=== PATIENT | female | born 1985 | race Caucasian/White ===

== ENCOUNTER 2018-10-02 10:52 | Inpatient (IN) | payer OTHER, SELFPAY ==
[2018-10-02 11:35] VITALS: BMI 38.0
[2018-10-02] MEDS ORDERED: Methylergonovine 0.2 MG/ML VIAL IM PRN ×2 (11:46→16:58)
[2018-10-02] MEDS ORDERED: Ibuprofen 800 MG TAB PO PRN (11:46)
[2018-10-02] MEDS ORDERED: HYDROcodone/Acetaminophen 5/325 mg Tablet PO PRN ×4 (11:46→16:58)
[2018-10-02] MEDS ORDERED: Butorphanol Tartrate 1 MG/ML VIAL SLOW IVP PRN (11:46)
[2018-10-02] MEDS ORDERED: Ondansetron PF 4 MG/2 ML Vial IVP PRN ×2 (11:46→16:58)
[2018-10-02] MEDS ORDERED: Acetaminophen 500 MG TAB PO PRN (11:46)
[2018-10-02] MEDS ORDERED: Carboprost 250 MCG/ML AMP IM PRN (11:46)
[2018-10-02] MEDS ORDERED: NS / Oxytocin 40 units/1000ml 1,000 ML IV PRN (11:46)
[2018-10-02] MEDS ORDERED: Diphenoxylate HCl/Atropine Tablet PO PRN ×2 (11:46)
[2018-10-02] MEDS ORDERED: Lidocaine 1% (PF) 30 ML VIAL SC PRN (11:46)
[2018-10-02] MEDS ORDERED: Promethazine HCl 25 MG/ML VIAL IM PRN (11:46)
[2018-10-02] MEDS ORDERED: Misoprostol 200 MCG TAB PR PRN (11:46)
[2018-10-02] MEDS ORDERED: Penicillin G Potassium 5 MILL.UNITS VIAL ONE (11:49)
[2018-10-02] MEDS ORDERED: Penicillin G Potassium 5 MILL.UNITS in Sodium Chloride 0.9% 100 ML IVPB SCH (12:00)
[2018-10-02 12:14] LABS: Mean Corpuscular HGB CONC 33.3 g/dL (32.0-36.0); Mean Corpuscular Hemoglobin 31.3 pg (27.0-31.0); Mean Platelet Volume 7.9 fL (7.4-10.4); Platelet Count 174 thou/uL (130-400); RBC Distribution Width 12.8 % (11.5-14.5); Red Blood Cell (RBC) Count 3.83 mill/uL (4.20-5.40); White Blood Cell (WBC) Count 9.8 thou/uL (4.8-10.8)
[2018-10-02 12:52] LABS: HBSAg Index 0.32 S/CO (0-0.99); Hep B Surf Ag Non-Reactive S/CO (NonReactive); Syphilis Antibody Nonreactive (Nonreactive); Syphilis Antibody Index 0.07 S/CO (<1.00 Non-Reactive)
[2018-10-02] MEDS: NS / Oxytocin 40 units/1000ml 1,000 ML IV SCH ×2 (14:40→16:15)
--- NOTE | 2018-10-02 15:13 | PDOC.LDHP ---
Labor and Delivery H&P Chief complaint: contractions HPI: oscar had regular contrqactions starting this morning during breakfast. They were every 4-6 mins before arriving to the hospital. Denies LOF, VB. The baby is moving normally Current gestational age (weeks): 39 Dating criteria: last menstrual period Grav: 3 Para: 2 OB History Details: 10+ lbs Current complications: none Abnormal US findings: No Past Medical History: rhesus negative pap NML 2018 Current medications: pre-herrera vitamins Previous surgical history: other ([place]is[place] teeth extraction Knee arthroscopy Chlecystectomy) Allergies/Adverse Reactions: Allergies Allergy/AdvReac Type Severity Reaction Status Date / Time No Known Allergies Allergy Verified 06/03/15 07:44 Social history: none - Physical Exam Vital signs reviewed and normal: yes General: breathing through contractions Heart: RRR Lungs: nonlabored breathing Abdomen: gravid Extremeties: trace edema FHT: category 1 - Vaginal Exam cm dilated: 5 Effacement: 100% Station: -1 - OB Labs Blood type: O RH: negative Antibody Screen: negative RPR: negative HEPSAg: negative 1 hour GCT: negative Urine drug screen: negative Rubella: immune - Assessment L&D Assessment: term patient in labor - Plan Plan: admit to L&D, GBS antibiotic prophylaxis (Anticipate High risk for PPH due to multiparity and hx of macrosomia Rhogam after delivery)
--- NOTE | 2018-10-02 15:17 | PDOC.OPDEL ---
OB Operative/Delivery Note Delivery Dr/Surgeon: ROSALINA Haile Pre-Delivery Diagnosis: active labor Procedure/Post Delivery Dx: spontaneous vaginal delivery Weeks gestation: 39 Anesthesia: none - Findings A Sex: female Weight: 9 lb 4 oz - 1 min: 9 - 5 min: 9 - Additional Findings/Plan Placenta delivered: spontaneous Repaired Obstetrical Laceration: 2nd degree Estimated blood loss: 350mL EBL Post delivery plan: routine recovery
[2018-10-02] MEDS ORDERED: Penicillin G 2.5 MILL.units 2.5 MILL.UNITS in Premix Bag 1 BAG IVPB SCH (16:00)
[2018-10-02] MEDS ORDERED: Misoprostol 200 MCG TAB VAG PRN (16:58)
[2018-10-02] MEDS ORDERED: Milk Of Magnesia 30 ML UDCUP PO PRN (16:58)
[2018-10-02] MEDS ORDERED: Benzocaine-Menthol 82.5 ML CAN TOP PRN (16:58)
[2018-10-02] MEDS ORDERED: Bisacodyl 10 MG SUPP PR PRN (16:58)
[2018-10-02] MEDS: Ferrous Sulfate 325 MG TAB PO SCH (17:48)
[2018-10-02] MEDS ORDERED: Sodium Chloride 0.9% 0 ML ONE (21:41)
[2018-10-02] MEDS: Ibuprofen 800 MG TAB PO SCH (22:04)
[2018-10-02] MEDS: Docusate Calcium (SURFAK) 240 MG CAP PO SCH (22:04)
[2018-10-03] MEDS: Ibuprofen 800 MG TAB PO SCH ×3 (05:53→21:44)
--- NOTE | 2018-10-03 07:45 | PDOC.PP ---
Post Progress Note Post Day #: 1 Subjective: No concerns. Resting. Minimal lochia and pain. Breast feeding. PO intake tolerated: yes Flatus: yes Ambulation: yes Vital Signs (12 hours) Temp Pulse Resp BP Pulse Ox 10/03/18 07:32 98.1 F 70 20 98/61 98 10/03/18 05:30 98.2 F 73 18 99/64 10/03/18 00:10 98.1 F 79 18 90/52 L Weight Weight 250 lb - Physical Examination General: NAD Cardiovascular: RRR Respiratory: non-labored breathing Abdominal: no distention, appropriately TTP Fundus firm & at: below umbilicus Neurological: no gross focal deficits Psychiatric: A&Ox3, normal affect Result Diagrams: 10/02/18 12:00 Additional Labs: Post Labs Blood Type O NEGATIVE 10/02/18 12:00 Hep Bs Antigen Non-Reactive S/CO (NonReactive) 10/02/18 12:00 (1) (spontaneous vaginal delivery) Code(s): O80 - ENCOUNTER FOR FULL-TERM UNCOMPLICATED DELIVERY Status: Acute - Assessment/Plan PPD1 VSSAF Rh neg, s/p rhogam Continue PP care Plan for d/c tomorrow with infant due to inadequate GBS PPX for infant.
[2018-10-03] MEDS ORDERED: Adacel (T-DAP) 0.5 ML SYRINGE IM ONE (09:00)
[2018-10-03] MEDS: Ferrous Sulfate 325 MG TAB PO SCH ×2 (10:36→18:14)
[2018-10-03] MEDS: Docusate Calcium (SURFAK) 240 MG CAP PO SCH ×2 (10:38→21:43)
[2018-10-03] MEDS: Prenatal Vitamin 1 TAB PO SCH (10:38)
[2018-10-04 08:16] VITALS: BP 104/65; TEMP 98.6
[2018-10-04] MEDS: Prenatal Vitamin 1 TAB PO SCH (09:06)
[2018-10-04] MEDS: Docusate Calcium (SURFAK) 240 MG CAP PO SCH (09:06)
[2018-10-04] MEDS: Ibuprofen 800 MG TAB PO SCH ×2 (09:07→12:08)
[2018-10-04] MEDS: Ferrous Sulfate 325 MG TAB PO SCH (09:07)
== END 2018-10-04 12:20 | disposition home or self-care (01) | DRG 807 ==
LOC: L&D/OP 10:52 → L&D-LIB 15:08 → 3SW 17:36
PROVIDERS: ADMIT Obstetrics & Gynecology; ATTEND Obstetrics & Gynecology
PROC: 10E0XZZ Delivery of Products of Conception, External Approach (ICD-10-PCS; principal; 2018-10-04)
PROC: 0KQM0ZZ Repair Perineum Muscle, Open Approach (ICD-10-PCS; 2018-10-04)
DX: O26.893 Other specified pregnancy related conditions, third trimester (principal); Z37.0 Single live birth; O70.1 Second degree perineal laceration during delivery; Z3A.39 39 weeks gestation of pregnancy; Z90.49 Acquired absence of other specified parts of digestive tract; Z67.91 Unspecified blood type, Rh negative
CPT/HCPCS: 36415; 85027; 85461; 86780; 86850; 86900; 86901; 87340; 90384; 90715; 96372; 99285; J2001; J2540

== ENCOUNTER 2020-07-18 17:20 | Inpatient (IN) | payer OTHER ==
[2020-07-18] MEDS ORDERED: Ibuprofen 800 MG TAB PO PRN (17:41)
[2020-07-18] MEDS ORDERED: Lactated Ringer's 1,000 ML IV PRN (17:41)
[2020-07-18] MEDS ORDERED: hydrALAZINE 20 MG/ML VIAL SLOW IVP PRN (17:41)
[2020-07-18] MEDS ORDERED: Ondansetron PF 4 MG/2 ML Vial IVP PRN ×2 (17:41→22:35)
[2020-07-18] MEDS ORDERED: NS / Oxytocin 40 units/1000ml 1,000 ML IV PRN (17:41)
[2020-07-18] MEDS ORDERED: Promethazine HCl 25 MG/ML VIAL IM PRN ×2 (17:41→22:35)
[2020-07-18] MEDS ORDERED: HYDROcodone/Acetaminophen 5/325 mg Tablet PO PRN ×2 (17:41)
[2020-07-18] MEDS ORDERED: Lidocaine 1% (PF) 30 ML VIAL SC PRN (17:41)
[2020-07-18] MEDS ORDERED: Penicillin G Potassium 5 MILL.UNITS in Sodium Chloride 0.9% 100 ML IVPB SCH (17:45)
--- NOTE | 2020-07-18 17:55 | PDOC.LDHP ---
Labor and Delivery H&P Chief complaint: contractions, loss of fluid HPI: Patient c/o a big gush of fluid around 3;30. It soaked her pad and came out of the front of it. She showered and had some bloody mucus that came after, but has not had anymore fluid leaking. She started jaky about thirty minutes later. After arriving to the hospital they are about every 3 minutes per patient. Affirms movement. Current gestational age (weeks): 39 (4) Due date: 07/21/20 Dating criteria: last menstrual period Grav: 4 Para: 3 OB History Details: 2013 8.8F 2016 10.4 Male 2019 9.4 Female Current complications: none, other (advanced maternal age) Abnormal US findings: No Current medications: pre-herrera vitamins Previous surgical history: cholecystectomy, other ([place] teeth extraction knee arthroscopy) Allergies/Adverse Reactions: Allergies Allergy/AdvReac Type Severity Reaction Status Date / Time No Known Allergies Allergy Verified 06/03/15 07:44 Social history: none - Physical Exam Vital signs reviewed and normal: yes General: breathing through contractions Heart: other Lungs: nonlabored breathing Abdomen: gravid FHT: category 1 - Vaginal Exam cm dilated: 6 Effacement: 90% Station: -1 - OB Labs Blood type: O RH: negative Antibody Screen: negative HIV: negative RPR: negative HEPSAg: negative 1 hour GCT: negative GBS: positive Urine drug screen: negative Rubella: immune - Assessment L&D Assessment: term rupture in membranes - Plan Plan: admit to L&D, GBS antibiotic prophylaxis, informed consent obtained
[2020-07-18] MEDS ORDERED: Penicillin G Potassium 5 MILL.UNITS VIAL ONE (18:19)
[2020-07-18 18:29] LABS: Hemoglobin 11.6 g/dL (12.0-16.0); Mean Corpuscular Hemoglobin 30.5 pg (27.0-31.0); Mean Corpuscular Volume 92.5 fL (78.0-98.0); Mean Platelet Volume 8.1 fL (7.4-10.4); Platelet Count 182 thou/uL (130-400); RBC Distribution Width 12.7 % (11.5-14.5); Red Blood Cell (RBC) Count 3.81 mill/uL (4.20-5.40); White Blood Cell (WBC) Count 11.5 thou/uL (4.8-10.8)
[2020-07-18 18:46] VITALS: BMI 42.5
[2020-07-18 19:10] LABS: Hep B Surf Ag Non-Reactive S/CO (NonReactive); Syphilis Antibody Nonreactive (Nonreactive); Syphilis Antibody Index 0.07 S/CO (<1.00 Non-Reactive)
[2020-07-18] MEDS ORDERED: Fentanyl 4 mcg/Bup 0.1% Cadd 100 ML ONE (22:02)
[2020-07-18] MEDS: Penicillin G 2.5 MILL.units 2.5 MILL.UNITS in Premix Bag 1 BAG IVPB SCH (22:20)
[2020-07-18] MEDS ORDERED: ePHEDrine 50 MG/ML VIAL SLOW IVP PRN (22:35)
[2020-07-18] MEDS ORDERED: Acetaminophen 325 MG TAB PO PRN (22:35)
[2020-07-18] MEDS ORDERED: diphenhydrAMINE 50 MG/ML VIAL IVP PRN (22:35)
[2020-07-18] MEDS ORDERED: Lactated Ringer's 500 ML IV PRN (22:35)
[2020-07-18] MEDS ORDERED: Naloxone HCl 0.4 mg/ml Vial IVP PRN ×2 (22:35)
[2020-07-18] MEDS ORDERED: Communication Order-Pharmacy FS SCH (22:45)
[2020-07-18] MEDS ORDERED: Fentanyl 4 mcg/Bupivacaine 0.1% Cassette 100 ML EPIDURAL SCH (22:45)
[2020-07-18] MEDS ORDERED: NS w/ Oxytocin 30 units 500 ML ONE (23:20)
[2020-07-19 00:09] LABS: Hemoglobin 10.9 g/dL (12.0-16.0); Mean Corpuscular HGB CONC 33.2 g/dL (32.0-36.0); Mean Corpuscular Hemoglobin 31.5 pg (27.0-31.0); Mean Corpuscular Volume 94.6 fL (78.0-98.0); Mean Platelet Volume 8.1 fL (7.4-10.4); Platelet Count 168 thou/uL (130-400); RBC Distribution Width 12.6 % (11.5-14.5); Red Blood Cell (RBC) Count 3.48 mill/uL (4.20-5.40); White Blood Cell (WBC) Count 18.7 thou/uL (4.8-10.8)
[2020-07-19 00:11] LABS: Platelet Count 168 thou/uL (130-400)
[2020-07-19] MEDS ORDERED: NS w/ Oxytocin 30 units 500 ML ONE (00:12)
[2020-07-19 00:14] LABS: Fibrinogen 457 mg/dL (253-463)
[2020-07-19 00:15] LABS: Prothrombin Time 13.7 sec (12.0-14.7)
[2020-07-19 00:16] LABS: D-Dimer Test 1.33 *mcg/mL (0.27-0.43)
[2020-07-19 00:20] LABS: FSP-Qualitative ABNORMAL (Normal); FSP-Semiquantitative >=5 & <20 mcg/mL (Less than 5)
[2020-07-19] MEDS ORDERED: Methylergonovine 0.2 MG/ML VIAL IM SCH (01:00)
[2020-07-19] MEDS ORDERED: Milk Of Magnesia 30 ML UDCUP PO PRN (02:22)
[2020-07-19] MEDS ORDERED: Methylergonovine 0.2 MG/ML VIAL IM PRN (02:22)
[2020-07-19] MEDS ORDERED: Ondansetron PF 4 MG/2 ML Vial IVP PRN (02:22)
[2020-07-19] MEDS ORDERED: Bisacodyl 10 MG SUPP PR PRN (02:22)
[2020-07-19] MEDS ORDERED: Benzocaine-Menthol 82.5 ML CAN TOP PRN (02:22)
[2020-07-19] MEDS ORDERED: NS / Oxytocin 40 units/1000ml 1,000 ML IV SCH (02:22)
[2020-07-19] MEDS ORDERED: hydrALAZINE 20 MG/ML VIAL SLOW IVP PRN (02:22)
[2020-07-19] MEDS ORDERED: Lanolin Ointment 7 GM TUBE TOP PRN (02:22)
[2020-07-19] MEDS ORDERED: Misoprostol 200 MCG TAB VAG PRN (02:22)
[2020-07-19] MEDS ORDERED: Docusate Calcium (SURFAK) 240 MG CAP PO SCH (02:30)
[2020-07-19 05:23] LABS: Hemoglobin 10.8 g/dL (12.0-16.0); Mean Corpuscular HGB CONC 32.5 g/dL (32.0-36.0); Mean Corpuscular Hemoglobin 29.7 pg (27.0-31.0); Mean Corpuscular Volume 91.3 fL (78.0-98.0); Mean Platelet Volume 8.1 fL (7.4-10.4); Platelet Count 177 thou/uL (130-400); RBC Distribution Width 13.3 % (11.5-14.5); Red Blood Cell (RBC) Count 3.62 mill/uL (4.20-5.40)
[2020-07-19] MEDS ORDERED: Misoprostol 200 MCG TAB ONE (05:58)
[2020-07-19] MEDS: Ibuprofen 800 MG TAB PO SCH ×3 (06:01→21:20)
[2020-07-19] MEDS ORDERED: Adacel (T-DAP) 0.5 ML SYRINGE IM ONE (09:00)
[2020-07-19] MEDS: Docusate Calcium (SURFAK) 240 MG CAP PO SCH ×2 (11:37→21:20)
[2020-07-19] MEDS: Prenatal Vitamin 1 TAB PO SCH (12:04)
[2020-07-19] MEDS: Ferrous Sulfate 325 MG TAB PO SCH ×2 (12:04→16:15)
[2020-07-19] MEDS: Penicillin G 2.5 MILL.units 2.5 MILL.UNITS in Premix Bag 1 BAG IVPB SCH (12:04)
--- NOTE | 2020-07-19 21:59 | PDOC.OPDEL ---
OB Operative/Delivery Note Delivery Dr/Surgeon: Lazara Pre-Delivery Diagnosis: active labor, ruptured membrane Procedure/Post Delivery Dx: spontaneous vaginal delivery Weeks gestation: 39 Anesthesia: epidural - Findings A Sex: male (89) Weight: 9 lb 12 oz - 1 min: 8 - 5 min: 9 - Additional Findings/Plan Placenta delivered: spontaneous Repaired Obstetrical Laceration: none Estimated blood loss: 2000ml. See nursing note for QBL Compilations/Other Findings: PPH at 3:30 seconds after delivery. 's cord was cut and clamped in order to expeditidly deliver the placenta. PPH continued after intact placental delivery. Approximately 1200mL at this time. Fundal massage performed while RN, acquired uterotonics. I placed 800mcg cytotec [place] followed by IM 25mg Methergine adminsterd by RN. bleeding slowed when uterine atony resolved. QBL at this time was 2000mLs. Subsequent BPs were low 80-90s, 50-60s. @IV line started in pt left AC by RN and warm NS started on blous. Verbal order was given to RN for stat DIC panel, which was drawn at time of IV insertion. 2 units PBRCs were typed and crossed. I stayed on unit until blood transfusion has started and BPs had returned to low normal normotensive range. Sawyer was replaced for strict I&O and pt remained in L&D overnight. Post delivery plan: recovery in LICU
--- NOTE | 2020-07-19 22:05 | PDOC.PP ---
Post Progress Note Post Day #: 1 Subjective: Patient is feeling really well. She is up to restroom and DC of barney. She would like to have IV out. is going well, all blood sugars have been normal PO intake tolerated: yes Flatus: yes Ambulation: yes Vital Signs (12 hours) Temp Pulse Resp BP Pulse Ox 07/19/20 17:00 98.0 F 69 16 90/54 L 97 07/19/20 11:35 98.1 F 81 18 115/70 97 Weight Weight 280 lb - Physical Examination General: NAD Respiratory: non-labored breathing Abdominal: lochia (minmal) Skin: no rash Neurological: no gross focal deficits Psychiatric: A&Ox3, normal affect Result Diagrams: 07/19/20 05:03 Additional Labs: Post Labs Hep Bs Antigen Non-Reactive S/CO (NonReactive) 07/18/20 18:14 Blood Type O NEGATIVE 07/18/20 18:14 (1) (spontaneous vaginal delivery) Code(s): O80 - ENCOUNTER FOR FULL-TERM UNCOMPLICATED DELIVERY Status: Acute (2) macrosomia Code(s): O36.60X0 - MATERNAL CARE FOR EXCESS GROWTH, UNSP TRIMESTER, UNSP Status: Acute (3) Term of male Code(s): Z37.0 - SINGLE LIVE Status: Acute (4) Multigravida in third trimester Code(s): Z34.83 - ENCOUNTER FOR SUPRVSN OF NORMAL , THIRD TRIMESTER Status: Acute (5) Advanced maternal age (AMA) in Code(s): VZH2439 - Status: Acute (6) Type O blood, Rh negative Code(s): Z67.41 - TYPE O BLOOD, RH NEGATIVE Status: Acute (7) Blood transfusion during current hospitalisation Code(s): TYR7814 - Status: Acute (8) hemorrhage Code(s): O72.1 - OTHER IMMEDIATE HEMORRHAGE Status: Acute - Assessment/Plan A: G4 now P4 s/p at 39 weeks 4 days complicated by PPH and blood transfusion NML PPD 1 exam. P: Discharge home tomorrow. 6 week visit
[2020-07-20] MEDS: Ibuprofen 800 MG TAB PO SCH ×2 (05:23→14:12)
[2020-07-20] MEDS: Ferrous Sulfate 325 MG TAB PO SCH (08:18)
[2020-07-20] MEDS: Docusate Calcium (SURFAK) 240 MG CAP PO SCH (08:18)
[2020-07-20] MEDS: Prenatal Vitamin 1 TAB PO SCH (08:18)
[2020-07-20 09:51] VITALS: BP 115/69; TEMP 98
== END 2020-07-20 17:00 | disposition home or self-care (01) | DRG 806 ==
LOC: L&D-LIB 17:20 → L&D 07-19 00:37 → 3SW 07-19 11:23 → EDSTATUS 07-21 10:56
PROVIDERS: ADMIT Obstetrics & Gynecology; ATTEND Advanced Practice Midwife
PROC: 10E0XZZ Delivery of Products of Conception, External Approach (ICD-10-PCS; principal; 2020-07-18)
PROC: 30233S1 Transfusion of Nonautologous Globulin into Peripheral Vein, Percutaneous Approach (ICD-10-PCS; 2020-07-19)
PROC: 30233N1 Transfusion of Nonautologous Red Blood Cells into Peripheral Vein, Percutaneous Approach (ICD-10-PCS; 2020-07-19)
DX: O36.63X0 Maternal care for excessive fetal growth, third trimester, not applicable or unspecified (principal); O72.1 Other immediate postpartum hemorrhage; Z37.0 Single live birth; Z3A.39 39 weeks gestation of pregnancy; Z90.49 Acquired absence of other specified parts of digestive tract
CPT/HCPCS: 36415; 36430; 51702; 85027; 85049; 85300; 85362; 85379; 85384; 85461; 85610; 85730; 86780; 86850; 86900; 86901; 87340; 90384; 96372; J2210; J2405; J2540; J2590; J3490; P9016